=== PATIENT | male | born 1970 ===

== ENCOUNTER → 2020-11-04 11:16 | Outpatient (BNVA) | payer OTHER, SELFPAY | PROVIDERS: PCP Pediatrics; Visit Provider Surgery ==

== ENCOUNTER → 2020-11-14 11:46 | Outpatient (BNVA) | payer OTHER, SELFPAY | PROVIDERS: PCP Pediatrics; Visit Provider Surgery ==

== ENCOUNTER → 2021-04-18 | Day surgery (SDC) | payer OTHER, SELFPAY ==
--- NOTE | 2021-04-15 08:39 | HO.ANESPROP2 ---
HPI - Anesthesia Eval Consult details Narrative: 51yo M for Colonoscopy via Stoma & Rectum Ileosotomy r/t divertic Pt cx'd self x 4 PMFSH Active Problems Active Problems: All Active Problems (Updated 11/14/20 @ 14:43 by Toño Pearson MD) Ileostomy in place (Acute) Past Medical History Medical History Asthma Constipation GERD (gastroesophageal reflux disease) History of diverticulitis Ileostomy in place Surgical History Surgical History H/O resection of large bowel (~2018) Hx of appendectomy Social History Social History Second Hand Smoke Exposure: No Meds Allergies Allergy/AdvReac Type Severity Reaction Status Date / Time Penicillins Allergy Intermediate Rash Verified 12/25/20 13:19 Home Medications Medication Instructions Recorded Confirmed Last Taken Type loperamide 2 mg capsule 1 cap PO DIRECTED 06/04/20 11/22/20 Unknown History Exam Exam Date and Time: April 15, 2021 0839 Assessment and Plan Assessment Anesthesia Assessment: Chart Reviewed
== END ==
PROVIDERS: PCP Pediatrics; Visit Provider Surgery
DX: Z12.11 Encounter for screening for malignant neoplasm of colon (principal); Z53.29 Procedure and treatment not carried out because of patient's decision for other reasons; Z93.2 Ileostomy status

== ENCOUNTER 2023-03-05 09:12 | Emergency (ER) | payer OTHER, SELFPAY ==
--- NOTE | ~2023-03-05 | US_ITS ---
EXAMINATION: US VENOUS ULTRASOUND WITH DOPPLER LOWER EXTREMITY, BILATERAL CLINICAL INFORMATION: Lower extremity edema COMPARISON: None available. TECHNIQUE: Ultrasound of the deep veins is performed from the hip to the calf with compression sonography and color and pulse Doppler assessment. Spectral analysis with color-flow imaging is performed. FINDINGS: The common femoral vein is compressible and exhibits a normal phasic waveform, bilaterally; this suggests that the iliac veins are widely patent above. Within each proximal thigh, the visualized profunda femoris vein is patent. The visualized greater saphenous veins and saphenofemoral junctions are normal. Superficial femoral vein is patent in the proximal, mid and distal aspect of each thigh. Popliteal vein is normal to the level of the trifurcation, bilaterally, and the visualized posterior tibial and peroneal veins are normal. No evidence of Noyola's cyst. US/US venous duplex LE BI IMPRESSION: No evidence of deep vein thrombosis in either lower extremity.
[2023-03-05 09:16] VITALS: BP 154/88; PULSE 79; RESP 20; TEMP 36.8; O2SAT 99; BMI 21.8
--- NOTE | 2023-03-05 09:29 | ECG_ITS ---
Test Reason : WEAKNESS' Blood Pressure : / mmHG Vent. Rate : 073 BPM Atrial Rate : 073 BPM P-R Int : 186 ms QRS Dur : 100 ms QT Int : 416 ms P-R-T Axes : 032 -41 041 degrees QTc Int : 458 ms Normal sinus rhythm Left axis deviation Abnormal ECG When compared with ECG of 11-SEP-2019 12:19, No significant change was found Referred By: Grace Lindsay Electronically Signed By:Sean Jones
--- NOTE | 2023-03-05 09:37 | ED.GENADULT ---
HPI - General Adult General Chief complaint: Skin/Abscess/Foreign Body Stated complaint: B/L Red Swollen Ankles Time Seen by Provider: 03/05/23 09:20 Source: patient Mode of arrival: ambulatory Limitations: no limitations History of Present Illness HPI narrative: 53 yo male with history of diverticulitis s/p ostomy who presents to the ER for evaluation of a worsening red rash and swelling on his bilateral ankles and legs x1.5 weeks. He reports a possible tick bite recently. Patient was seen at 5 days ago and prescribed doxy + bactrim for suspected lyme and cellulitis. Today he noticed pintpoint red weeks to his bilateral LE and redness/ swelling to b/l ankles with itching. Denies weakness, fatigue, chest pain, SOB, N/V, diarrhea, or constipation. Onset (ago): week(s) (2) Location: left, right and lower extremity Radiation: non-radiation Severity: moderate Pain Consistency: constant Relieving factors: none Exacerbating factors: none Associated symptoms: denies other symptoms Treatments prior to arrival: other (abx) Related Data Home Medications Medication Instructions Recorded Confirmed loperamide 2 mg capsule 1 cap PO DIRECTED 06/04/20 11/22/20 Previous Rx's Medication Instructions Recorded doxycycline hyclate 100 mg tablet 100 mg PO BID #20 tabs 12/25/20 omeprazole 20 mg capsule,delayed 20 mg PO DAILY #30 caps 01/22/21 release sulfamethoxazole 800 1 tab PO BID 7 days #14 tabs 03/01/23 mg-trimethoprim 160 mg tablet (Bactrim DS) prednisone 20 mg tablet 60 mg PO DAILY 7 days #21 tabs 03/05/23 Allergies Allergy/AdvReac Type Severity Reaction Status Date / Time Penicillins Allergy Intermediate Rash Verified 03/01/23 15:49 Review of Systems Review of Systems: Yes all other systems are reviewed and are negative PMFSH Past Medical History Attestation statement: The following information was validated with the patient. Source: old records reviewed Medical History Asthma Constipation GERD (gastroesophageal reflux disease) History of diverticulitis Ileostomy in place Surgical History H/O resection of large bowel (~2018) Hx of appendectomy Social History Social History Second Hand Smoke Exposure: No Advance Directives: Yes Advance Directives Information Provided: Yes Advance Directives on File: No Physical Exam ED Vital Signs: Vital Signs - 24 hr 03/05/23 09:16 03/05/23 12:25 Temperature 98.2 F 97.7 F Pulse Rate 79 68 Respiratory Rate 20 16 Blood Pressure 154/88 H 114/74 Pulse Oximetry 99 100 Oxygen Delivery Method Room Air Room Air BMI result Body Mass Index 21.8 Appearance: Alert. Oriented X3. No acute distress. Head: normocephalic, atraumatic. Eyes: Pupils equal, round and reactive to light. ENT: Pharynx normal. No tonsillar swelling or exudate. Neck: Normal inspection. Neck supple. CVS: Normal heart rate and rhythm. Pulses normal. Respiratory: No respiratory distress. Breath sounds normal. Abdomen: Soft and nontender. +BS x4 Skin: Skin warm and dry. Normal skin color. Normal skin turgor. No rashes. Extremities: Edema to bilateral ankles. LE. Vasculitic, non blanching, erythematous rash to right ankle. Petechial rash to bilateral LE up to the thighs. Neuro/psych: Oriented X 3. No motor deficit. No sensory deficit. Medications Administered Discontinued Medications Generic Name Dose Route Start Last Admin Trade Name Freq PRN Reason Stop Dose Admin Prednisone 60 mg 03/05/23 12:01 03/05/23 12:23 Prednisone 20 Mg Tablet PO 03/05/23 12:02 60 mg ONCE ONE Administration Medical Decision Making Medical Decision Making MDM Narrative: 53 yo male with history of diverticulitis s/p ostomy who presents to the ER for evaluation of a worsening red rash and swelling on his bilateral ankles and legs x1.5 weeks. Vital signs stable. Physical exam notable for vasculitic rash to right ankle and petechial rash to b/l lower extremities. Plan: labs, venous duplex b/l LE, tick panel Labs within normal limits, mildly anemic. platelets and coags are normal, as are LFTs. Mildly elevated ESR/ CRP. Normal venous duplex of b/l LE. Tick panel pending. His exam is c/w vasculitis of unclear etiology. No other organ damage found today. Will plan to start of prednisone 60 mg x7 days and have him follow up with his PCP for further management and work up. Case d/w Dr. Ayala. Stable for d/c, all questions were answered. Differential Diagnosis Differential Diagnoses: The differential diagnosis associated with the presentation includes (vasculitis, cellulitis, venous insufficiency, TEN, large vs small vessel cellulitis ) Admission/Observation Consideration of admission/observation: Escalation of care including admission/observation considered (This 53 yo male recently rx doxy and bactrim for possible infection, concern for vasculitic process and possible coagulopathy with multi-system involvement, considered admission.) Lab Data MDM Lab Attestation statement: I reviewed the patient's lab results. (Labs within normal limits, mildly anemic. Mildly elevated ESR/ CRP.) 03/05/23 10:13 03/05/23 10:13 Labs: Lab Results 03/05/23 03/05/23 03/05/23 Range/Units 10:13 10:13 10:13 WBC 3.6 L (4.8-10.8) X10*3/uL RBC 4.57 L (4.60-5.80) X10*6/uL Hgb 11.8 L (14.0-18.0) g/dl Hct 36.5 L (42.0-52.0) % MCV 79.9 L (80.0-98.0) fL MCH 25.8 L (27.0-33.0) pg MCHC 32.3 (31.0-36.0) g/dl RDW 13.2 (11.0-16.0) % Plt Count 203 (160-400) X10*3/uL MPV 10.1 (9.4-12.4) fL Immature Gran % (Auto) 0.3 (0.0-0.4) % Neut % (Auto) 78.9 H (45-73) % Lymph % (Auto) 12.5 L (20-40) % Mccracken % (Auto) 6.9 (2-11) % Eos % (Auto) 1.1 (0-4) % Baso % (Auto) 0.3 (0-2) % Lymph # (Auto) 0.5 L (1.2-4.9) X10*3/uL Mccracken # (Auto) 0.3 (0.1-1.2) X10*3/uL Eos # (Auto) 0.0 (0.0-0.4) X10*3/uL Baso # (Auto) 0.0 (0.0-0.2) X10*3/uL Abs Immat Gran (auto) 0.01 (0.00-0.03) X10*3/uL Absolute Neuts (auto) 2.9 (2.0-8.3) x10*3/uL Absolute Nucleated RBC 0.000 (0.0-0.012) X10*3/uL Nucleated RBC % (auto) 0.0 (0.0-0.2) /100WBC ESR (0-15) MM/HR PT 12.4 (10.0-13.1) SEC INR 1.1 (0.9-1.1) APTT 28.6 (26.0-36.4) SEC Sodium 138 (135-145) mmol/L Potassium 3.8 (3.3-5.1) mmol/L Chloride 103 (96-108) mmol/L Carbon Dioxide 26 (22-29) mmol/L Anion Gap 13 (12-20) BUN 16 (9-16) mg/dL Creatinine 1.24 (0.5-1.4) mg/dL Estim Creat Clear Calc 67.3 Estimated GFR > 60 Random Glucose 114 (60-115) mg/dL Calcium 9.3 (8.4-10.2) mg/dL Magnesium 2.0 (1.6-2.6) mg/dL Total Bilirubin 0.8 (0.0-1.0) mg/dL Direct Bilirubin 0.3 (0.0-0.5) mg/dL AST 22 (5-37) U/L ALT 12 (0-40) U/L Alkaline Phosphatase 62 (39-117) U/L C-Reactive Protein 0.73 H (< or = 0.50) mg/dL B-Natriuretic Peptide (<100) pg/mL Total Protein 6.9 (6.5-8.0) g/dL Albumin 3.7 (3.5-5.0) g/dL 03/05/23 03/05/23 Range/Units 10:13 10:13 WBC (4.8-10.8) X10*3/uL RBC (4.60-5.80) X10*6/uL Hgb (14.0-18.0) g/dl Hct (42.0-52.0) % MCV (80.0-98.0) fL MCH (27.0-33.0) pg MCHC (31.0-36.0) g/dl RDW (11.0-16.0) % Plt Count (160-400) X10*3/uL MPV (9.4-12.4) fL Immature Gran % (Auto) (0.0-0.4) % Neut % (Auto) (45-73) % Lymph % (Auto) (20-40) % Mccracken % (Auto) (2-11) % Eos % (Auto) (0-4) % Baso % (Auto) (0-2) % Lymph # (Auto) (1.2-4.9) X10*3/uL Mccracken # (Auto) (0.1-1.2) X10*3/uL Eos # (Auto) (0.0-0.4) X10*3/uL Baso # (Auto) (0.0-0.2) X10*3/uL Abs Immat Gran (auto) (0.00-0.03) X10*3/uL Absolute Neuts (auto) (2.0-8.3) x10*3/uL Absolute Nucleated RBC (0.0-0.012) X10*3/uL Nucleated RBC % (auto) (0.0-0.2) /100WBC ESR 23 H (0-15) MM/HR PT (10.0-13.1) SEC INR (0.9-1.1) APTT (26.0-36.4) SEC Sodium (135-145) mmol/L Potassium (3.3-5.1) mmol/L Chloride (96-108) mmol/L Carbon Dioxide (22-29) mmol/L Anion Gap (12-20) BUN (9-16) mg/dL Creatinine (0.5-1.4) mg/dL Estim Creat Clear Calc Estimated GFR Random Glucose (60-115) mg/dL Calcium (8.4-10.2) mg/dL Magnesium (1.6-2.6) mg/dL Total Bilirubin (0.0-1.0) mg/dL Direct Bilirubin (0.0-0.5) mg/dL AST (5-37) U/L ALT (0-40) U/L Alkaline Phosphatase (39-117) U/L C-Reactive Protein (< or = 0.50) mg/dL B-Natriuretic Peptide 129 H (<100) pg/mL Total Protein (6.5-8.0) g/dL Albumin (3.5-5.0) g/dL Independent Interpretation I performed an independent interpretation of an: Ultrasound Interpretation: no visible DVT, agree w/ radiology read Radiology Impression Discussion of test interpretation with radiology: I have reviewed the radiologist's reading. Radiologist Impression: US/US venous duplex LE BI IMPRESSION:? No evidence of deep vein thrombosis in either lower extremity. External Record Review External record reviewed: Outpatient record and Prior outpatient labs Prescription Management I considered prescription management with: Other (steroid) Critical Care Time Critical Care Time Critical Care Time: No Discharge Plan Discharge Clinical Impression: Vasculitis Patient Disposition: Home, Self-Care Instructions: Leg Edema (ED) Additional Instructions: Your lab workup was reassuring. The ultrasound of your legs was normal. Your exam and clinical presentation are consistent with vasculitis. The cause is unknown. A steroid for your rash has been sent to your pharmacy. Please take this as prescribed and follow up with your PCP as they may want to taper this medication and take you off of it slowly. Recommend STOPPING bactrim and continuing your doxycycline until we get your tick panel back. IF your tick panel comes back positive we will call you. If you develop new or worsening symptoms call 911 or come back to the ER for further evaluation. Prescriptions: New prednisone 20 mg tablet 60 mg PO DAILY 7 Days Qty: 21 0RF No Action doxycycline hyclate 100 mg tablet 100 mg PO BID Qty: 20 0RF omeprazole 20 mg capsule,delayed release(DR/EC) 20 mg PO DAILY Qty: 30 3RF loperamide 2 mg capsule 1 cap PO DIRECTED sulfamethoxazole-trimethoprim [Bactrim DS] 800-160 mg tablet 1 tab PO BID 7 Days Qty: 14 0RF Referrals: Trace Blanco MD [Primary Care Provider] - 1 week
[2023-03-05 10:21] LABS: MANUAL DIFF FLAG NO
[2023-03-05 10:25] LABS: Basophils Percent Auto 0.3 % (0-2); Eosinophils Percent Auto 1.1 % (0-4); Hematocrit 36.5 % (42.0-52.0); Hemoglobin 11.8 g/dl (14.0-18.0); Imm Gran Abs Auto 0.01 X10*3/uL (0.00-0.03); Imm Gran Pct Auto 0.3 % (0.0-0.4); Lymphocytes Absolute Auto 0.5 X10*3/uL (1.2-4.9); Lymphocytes Percent Auto 12.5 % (20-40); Mean Corpuscular HGB Conc 32.3 g/dl (31.0-36.0); Mean Corpuscular Hemoglobin 25.8 pg (27.0-33.0); Mean Corpuscular Volume 79.9 fL (80.0-98.0); Mean Platelet Volume 10.1 fL (9.4-12.4); Monocytes Absolute Auto 0.3 X10*3/uL (0.1-1.2); Monocytes Percent Auto 6.9 % (2-11); Neutrophils Absolute Auto 2.9 x10*3/uL (2.0-8.3); Neutrophils Percent Auto 78.9 % (45-73); Platelet Count 203 X10*3/uL (160-400); Red Blood Count 4.57 X10*6/uL (4.60-5.80); Red Cell Distribution Width 13.2 % (11.0-16.0); White Blood Count 3.6 X10*3/uL (4.8-10.8)
[2023-03-05 10:29] LABS: INTERNATIONAL NORM RATIO 1.1 (0.9-1.1); Prothrombin Time 12.4 SEC (10.0-13.1)
[2023-03-05 10:32] LABS: Partial Thromboplastin Time 28.6 SEC (26.0-36.4)
[2023-03-05 10:45] LABS: Alanine Aminotransferase 12 U/L (0-40); Albumin Level 3.7 g/dL (3.5-5.0); Alkaline Phosphatase 62 U/L (39-117); Anion Gap 13 (12-20); Aspartate Amino Transferase 22 U/L (5-37); Bilirubin Direct 0.3 mg/dL (0.0-0.5); Bilirubin Total 0.8 mg/dL (0.0-1.0); Blood Urea Nitrogen 16 mg/dL (9-16); C Reactive Protein 0.73 mg/dL (< or = 0.50); Calcium 9.3 mg/dL (8.4-10.2); Carbon Dioxide 26 mmol/L (22-29); Chloride 103 mmol/L (96-108); Creatinine Clr Calc Pharmacy 67.3; Estimated Glomerular Filt Rate > 60; Glucose Random 114 mg/dL (60-115); Potassium 3.8 mmol/L (3.3-5.1); Sodium 138 mmol/L (135-145); Total Protein 6.9 g/dL (6.5-8.0)
[2023-03-05 10:50] LABS: B Type Natriuretic Peptide 129 pg/mL (<100)
[2023-03-05 11:15] LABS: Erythrocyte Sedimentation Rate 23 MM/HR (0-15)
--- NOTE | 2023-03-05 11:16 | PC.NURSE ---
pt in stretcher, ultrasound in room
[2023-03-05] MEDS: predniSONE 20 MG TABLET 60 MG PO (12:23)
[2023-03-05 12:25] VITALS: BP 114/74; PULSE 68; RESP 16; TEMP 36.5; O2SAT 100
[2023-03-08 14:34] LABS: A. Phagocytphilium DNA,RT-PCR NOT DETECTED (NOT DETECTED); Babesia Microti DNA, RT-PCR NOT DETECTED (NOT DETECTED); Borrelia Miyamotoi,DNA RT-PCR NOT DETECTED (NOT DETECTED); E.Chaffeensis DNA RT-PCR NOT DETECTED (NOT DETECTED); Lyme(Borrelia ssp)DNA RT-PCR NOT DETECTED (NOT DETECTED)
[2023-03-08 21:22] LABS: Lyme Abs Screen <0.90 index
[2023-03-10 22:48] LABS: Rocky Mtn. Spot. Fever IgG Ab Not Detected (Not Detected); Rocky Mtn.Spot. Fever IgM Ab Not Detected (Not Detected)
[2023-03-15 09:32] LABS: A. Phagocytophilum Ab IgG <1:64 (<1:64); A. Phagocytophilum Ab IgM <1:20 (<1:20); E. Chaffeensis Ab IgG <1:64 (<1:64); E. Chaffeensis Ab IgM <1:20 (<1:20)
== END 2023-03-05 13:26 | disposition home or self-care (01) ==
PROVIDERS: Physician Assistant; Emergency Provider Emergency Medicine Emergency Medical Services; PCP Pediatrics
DX: I77.6 Arteritis, unspecified (principal); R60.0 Localized edema; D64.9 Anemia, unspecified; R70.0 Elevated erythrocyte sedimentation rate; S80.862D Insect bite (nonvenomous), left lower leg, subsequent encounter; S80.861D Insect bite (nonvenomous), right lower leg, subsequent encounter; W57.XXXD Bitten or stung by nonvenomous insect and other nonvenomous arthropods, subsequent encounter; Z93.2 Ileostomy status; Z79.899 Other long term (current) drug therapy; R23.3 Spontaneous ecchymoses
CPT/HCPCS: 36415; 80048; 80076; 83735; 83880; 85025; 85610; 85652; 85730; 86140; 86617; 86618; 86666; 86757; 87798; 87801; 93005; 93970; 99284

== ENCOUNTER 2023-03-17 09:24 | Outpatient (AMB) | payer OTHER, SELFPAY ==
--- NOTE | 2023-03-17 09:36 | MHC.OFFVIS ---
Intake Vital Signs 03/17/23 09:41 Height 5 ft 11 in Weight 155 lb BMI 21.6 BP 147/70 H Blood Pressure Location Rt brachial Position Sitting Pulse 79 Intake Visit Reasons: discuss colonoscopy Intake Note: This patient presents for an assessment to discuss colonoscopy. Patient denies complaints at this time. [place] Required: No Accompanied by: Self / Same As Patient Allergies Penicillins Allergy (Intermediate, Verified 03/17/23 09:42) Rash Medication List - Last Reconciled 03/17/23 by Toño Pearson MD doxycycline hyclate 100 mg PO BID loperamide 1 cap PO DIRECTED omeprazole 20 mg PO DAILY prednisone 60 mg (3 x 20 mg) PO DAILY 7 days sulfamethoxazole-trimethoprim 800-160 mg (Bactrim DS) 1 tab PO BID 7 days HPI discuss colonoscopy HPI Details 53-year-old male who is well known to me for an ileostomy, here to schedule for his colonoscopy. He had undergone urgent sigmoid resection Dr. Parada in 2018. He however had an anastomotic leak at that time and had required return to the OR. The left colon and sigmoid could not be accessed then in view of severe adhesions and postop inflammatory changes so I placed multiple drains, along with diverting loop ileostomy. He also had enterotomy repairs at that time. He had a barium enema showing no leak in the colon. He had been scheduled for a colonoscopy because of his age but he had canceled this in the past multiple times. He says he feels ready now to proceed with a colonoscopy. He denies any problems with this loop ileostomy. He says he feels well overall. [facility] Medical History Asthma Constipation GERD (gastroesophageal reflux disease) History of diverticulitis Ileostomy in place Surgical History H/O resection of large bowel (~2018) Hx of appendectomy Social History Second Hand Smoke Exposure: No Review of Systems Const Denies chills and Denies fever(s) Card Denies chest pain, Denies dyspnea and Denies dyspnea on exertion Resp Denies cough, Denies dyspnea and Denies dyspnea on exertion GI Denies hematochezia and Denies change in bowel habits Denies hematuria and Denies difficulty urinating Musc Denies back pain and Denies limited range of motion Neuro Denies focal weakness and Denies convulsions Psych Denies depression and Denies mood swings Physical Exam Vital Signs: Last Vital Signs Pulse 79 03/17/23 09:41 BP 147/70 H 03/17/23 09:41 BMI result Body Mass Index 21.6 Const General: comfortable and no acute distress Orientation/consciousness: patient oriented x3 Neck Neck: Yes no lymphadenopathy Resp Auscultation: clear to auscultation bilaterally Cardio Rhythm: regular rhythm GI Other: Loop ileostomy in place on the right side, functioning well, midline incision well healed Palpation (GI): Soft to palpation, nontender and no guarding Neuro General: patient oriented x3 Assessment & Plan Assessment & Plan (1) Ileostomy in place: Comment: 2018 Code(s): Z93.2 - Ileostomy status Plan: He wants to proceed with colonoscopy to evaluate his colon. He is still considering having reversal down the line. Explained to him the technique of colonoscopy both for screening purposes as well as for diagnostic reasons in view of his previous sigmoid resection. Explained the risks including but not limited did to bleeding, infections, perforation, in and risk of anesthesia, as well as the benefits and alternatives. He wants to proceed. He does not require bowel prep in view of his ileostomy. I therefore explained to him that he may have significant residual stool in his colon that may preclude good visualization. Coding Level of Care Code New Pt Level 3 (67947) Diagnoses Ileostomy in place Z93.2
[2023-03-17 09:41] VITALS: BP 147/70; PULSE 79; BMI 21.6
== END 2023-03-17 09:59 | disposition home or self-care (01) ==
PROVIDERS: PCP Pediatrics; Visit Provider Surgery
DX: Z93.2 Ileostomy status (principal)
CPT/HCPCS: 99213

== ENCOUNTER → 2023-03-17 09:24 | Outpatient (BNVA) | payer OTHER, SELFPAY | PROVIDERS: PCP Pediatrics; Visit Provider Surgery ==

== ENCOUNTER 2023-03-28 07:57 | Emergency (ER) | payer OTHER, SELFPAY ==
--- NOTE | 2023-03-28 08:09 | ED_ITS ---
HPI - General Adult General Chief complaint: General Medical Stated complaint: Right leg swollen warm to the tough/Red color Time Seen by Provider: 03/28/23 08:08 Source: patient Mode of arrival: ambulatory Limitations: no limitations History of Present Illness HPI narrative: 53-year-old male history of asthma, constipation, GERD, diverticulitis presenting to the emergency department for evaluation of rash to RLE. Right leg that swollen, red, warm and tender to the touch per patient. Reports that his Left leg also has a small rash but worse on RLE. Worsening over the past few days. Reports that not long ago he had the same thing and it improved with antibiotics and steroids. Has not yet seen a specialist OPC Patient denies fevers, chills, numbness, tingling headache, vision changes, dizziness and we akness. Related Data Home Medications Medication Instructions Recorded Confirmed loperamide 2 mg capsule 1 cap PO DIRECTED 06/04/20 03/17/23 Previous Rx's Medication Instructions Recorded doxycycline hyclate 100 mg tablet 100 mg PO BID #20 tabs 12/25/20 omeprazole 20 mg capsule,delayed 20 mg PO DAILY #30 caps 01/22/21 release sulfamethoxazole 800 1 tab PO BID 7 days #14 tabs 03/01/23 mg-trimethoprim 160 mg tablet (Bactrim DS) prednisone 20 mg tablet 60 mg PO DAILY 7 days #21 tabs 03/05/23 doxycycline hyclate 100 mg capsule 100 mg PO BID 10 days #20 caps 03/28/23 prednisone 20 mg tablet 60 mg PO DAILY 5 days #15 tabs 03/28/23 Allergies Allergy/AdvReac Type Severity Reaction Status Date / Time Penicillins Allergy Intermediate Rash Verified 03/17/23 09:42 Review of Systems Review of Systems: Constitutional : No Weight loss, No Fever, No Chills, No Fatigue, No Malaise ENT/Mouth : No sore throat, No Rhinorrhea Eyes: No Eye Pain, No Swelling, No Redness Cardiovascular : No Chest Pain, No SOB, No Dyspnea on Exertion, No Orthopnea, No Edema, No Palpitations Respiratory : No Cough, No Sputum, No Wheezing Gastrointestinal : No Nausea, No Vomiting, No Diarrhea, No Constipation, No abdominal Pain, No Hematochezia, No Melena Genitourinary : No Dysuria, No Urinary Frequency, No Hematuria, Musculoskeletal : + joint pain, No Myalgias, + Joint Swelling Skin : No Skin Lesions, No rash Neuro : No Weakness, No Numbness, No Dizziness, No Headache Psych : No Anxiety/Panic, No Depression All other systems reviewed and are negative Yes all other systems are reviewed and are negative [facility] Past Medical History Attestation statement: The following information was validated with the patient. Source: old records reviewed and nursing notes reviewed Medical History Asthma Constipation GERD (gastroesophageal reflux disease) History of diverticulitis Ileostomy in place Surgical History H/O resection of large bowel (~2018) Hx of appendectomy Social History Social History Smoked in Last 30 Days: No Second Hand Smoke Exposure: No Use of substances other than those prescribed or required for medical reasons: No Advance Directives: No Advance Directives Information Provided: No Physical Exam ED Vital Signs: Vital Signs - 24 hr 03/28/23 08:10 03/28/23 08:29 Temperature 98.2 F Pulse Rate 76 68 Respiratory Rate 16 15 Blood Pressure 154/83 H 135/82 Pulse Oximetry 99 100 Oxygen Delivery Method Room Air Room Air BMI result Body Mass Index 26.5 vss Appearance: Alert.? Oriented X3.? No acute distress.? Head: Normocephalic, atraumatic, no step-offs or deformities Eyes: Pupils equal, round and reactive to light.? CVS: Normal heart rate and rhythm.? Pulses normal.? Respiratory: No respiratory distress.? Breath sounds normal.? Abdomen: Soft and nontender.? Skin: Skin warm and dry.? Normal skin color.? Normal skin turgor.? + nonblanchable rash to b/l lower extremities 2+ DP,AT, PT pulses equal and b/l w/ normal sensation distally to b/l LE, no foot drop ( image below) Extremities: No lower extremity edema.? No calf ttp, negative concha b/l.. 5/5 strength to bilateral upper and lower extremities Neuro: Oriented X 3.? No motor deficit.? No sensory deficit. CN 2-12 intact Course Reevaluation(s) Reevaluation #1: Chart review reveals that patient was seen here on 03/05/2023 for a similar presentation. Had a negative DVT study on that day no need for repeat study i do not suspect DVT or arterial occlusion. He tells me that last time he had this they gave him antibiotics and steroids and it completely cleared this. Patient has not yet seen his PCP but is scheduled to go see them soon. I explained to him he might require hematology evaluation at some point. Will discharge on prednisone, doxycycline as long as labs are stable. Educated patient on diagnosis and treatment plan, answered all question, patient verbalizes understanding. At this time patient will be discharged home, advised to return with new or worsening symptoms. Educated on worrisome signs and symptoms and when to return. At this time I feel comfortable discharge home. Time: 08:16 Reevaluation #2: CBC with no acute findings, patient noted to have slight leukopenia however has been present in the past, normocytic anemia at baseline noted. Patient's platelets stable. Chemistry unremarkable. Patient's CRP elevated, consistent with vasculitis will have him follow-up with Hematology. Advised him to follow- up with PCP also. Medical Decision Making Medical Decision Making MDM Narrative: 53-year-old male presents with rash to bilateral lower extremities for the past few days worsening. Physical exam significant for nonblanching rash to bilateral lower extremities please refer to image and physical exam portion of chart. This is likely vasculitis vs cellulitis. Unlikely erysipelas, necrotizing infection, threatened limb, arterial occlusion or venous occlusion. Unlikely TEN, SJS. Will rule out thrombocytopenia. Unlikely CHF Plan labs Differential Diagnosis Differential Diagnoses: The differential diagnosis associated with the presentation includes This is likely vasculitis vs cellulitis. Unlikely erysipelas, necrotizing infection, threatened limb, arterial occlusion or venous occlusion. Unlikely TEN, SJS. Will rule out thrombocytopenia. Unlikely CHF Admission/Observation Consideration of admission/observation: Escalation of care including admission/observation considered Unlikely Lab Data [facility] Lab Attestation statement: I reviewed the patient's lab results. 03/28/23 08:21 03/28/23 08:21 Labs: Lab Results 03/28/23 03/28/23 03/28/23 Range/Units 08:21 08:21 08:21 WBC 2.9 L (4.8-10.8) X10*3/uL RBC 4.44 L (4.60-5.80) X10*6/uL Hgb 11.2 L (14.0-18.0) g/dl Hct 35.6 L (42.0-52.0) % MCV 80.2 (80.0-98.0) fL MCH 25.2 L (27.0-33.0) pg MCHC 31.5 (31.0-36.0) g/dl RDW 13.2 (11.0-16.0) % Plt Count 232 (160-400) X10*3/uL MPV 9.7 (9.4-12.4) fL Immature Gran % (Auto) 0.3 (0.0-0.4) % Neut % (Auto) 66.4 (45-73) % Lymph % (Auto) 23.6 (20-40) % [place] % (Auto) 7.3 (2-11) % Eos % (Auto) 2.1 (0-4) % Baso % (Auto) 0.3 (0-2) % Lymph # (Auto) 0.7 L (1.2-4.9) X10*3/uL [place] # (Auto) 0.2 (0.1-1.2) X10*3/uL Eos # (Auto) 0.1 (0.0-0.4) X10*3/uL Baso # (Auto) 0.0 (0.0-0.2) X10*3/uL Abs Immat Gran (auto) 0.01 (0.00-0.03) X10*3/uL Absolute Neuts (auto) 1.9 L (2.0-8.3) x10*3/uL Absolute Nucleated RBC 0.000 (0.0-0.012) X10*3/uL Nucleated RBC % (auto) 0.0 (0.0-0.2) /100WBC ESR 34 H (0-15) MM/HR Sodium 139 (135-145) mmol/L Potassium 3.6 (3.3-5.1) mmol/L Chloride 102 (96-108) mmol/L Carbon Dioxide 28 (22-29) mmol/L Anion Gap 13 (12-20) BUN 15 (9-16) mg/dL Creatinine 1.13 (0.5-1.4) mg/dL Estim Creat Clear Calc 71.4 Estimated GFR > 60 Random Glucose 107 (60-115) mg/dL Calcium 9.4 (8.4-10.2) mg/dL Magnesium 1.9 (1.6-2.6) mg/dL Total Bilirubin 0.8 (0.0-1.0) mg/dL AST 16 (5-37) U/L ALT 11 (0-40) U/L Alkaline Phosphatase 60 (39-117) U/L C-Reactive Protein (< or = 0.50) mg/dL Total Protein 7.3 (6.5-8.0) g/dL Albumin 3.8 (3.5-5.0) g/dL 03/28/23 Range/Units 08:21 WBC (4.8-10.8) X10*3/uL RBC (4.60-5.80) X10*6/uL Hgb (14.0-18.0) g/dl Hct (42.0-52.0) % MCV (80.0-98.0) fL MCH (27.0-33.0) pg MCHC (31.0-36.0) g/dl RDW (11.0-16.0) % Plt Count (160-400) X10*3/uL MPV (9.4-12.4) fL Immature Gran % (Auto) (0.0-0.4) % Neut % (Auto) (45-73) % Lymph % (Auto) (20-40) % [place] % (Auto) (2-11) % Eos % (Auto) (0-4) % Baso % (Auto) (0-2) % Lymph # (Auto) (1.2-4.9) X10*3/uL [place] # (Auto) (0.1-1.2) X10*3/uL Eos # (Auto) (0.0-0.4) X10*3/uL Baso # (Auto) (0.0-0.2) X10*3/uL Abs Immat Gran (auto) (0.00-0.03) X10*3/uL Absolute Neuts (auto) (2.0-8.3) x10*3/uL Absolute Nucleated RBC (0.0-0.012) X10*3/uL Nucleated RBC % (auto) (0.0-0.2) /100WBC ESR (0-15) MM/HR Sodium (135-145) mmol/L Potassium (3.3-5.1) mmol/L Chloride (96-108) mmol/L Carbon Dioxide (22-29) mmol/L Anion Gap (12-20) BUN (9-16) mg/dL Creatinine (0.5-1.4) mg/dL Estim Creat Clear Calc Estimated GFR Random Glucose (60-115) mg/dL Calcium (8.4-10.2) mg/dL Magnesium (1.6-2.6) mg/dL Total Bilirubin (0.0-1.0) mg/dL AST (5-37) U/L ALT (0-40) U/L Alkaline Phosphatase (39-117) U/L C-Reactive Protein 1.13 H (< or = 0.50) mg/dL Total Protein (6.5-8.0) g/dL Albumin (3.5-5.0) g/dL External Record Review External record reviewed: Inpatient record, Office record, Outpatient record, Prior outpatient labs, Prior outpatient radiology, Primary care record and Outside ED record Tests considered The following testing was considered but not selected: Negative Concha sign, no need for DVT low suspicion. Palpable pulses no signs of neurovascular compromise no need for arterial scan. Prescription Management I considered prescription management with: Antibiotic and Other (Prednisone) Core Measures AMI core measures followed: Yes Measure exclusions: not indicated Critical Care Time Critical Care Time Critical Care Time: No Discharge Plan Discharge Clinical Impression: Vasculitis Patient Disposition: Home, Self-Care Additional Instructions: Take your medications as prescribed. If you were prescribed antibiotics today, it is important that you take your medication to their entirety, do not skip any doses, do not finish them early. Follow-up with your primary care provider this week. Return to the emergency department with new or worsening symptoms. Such as fevers, chills, chest pain, shortness of breath, nausea, vomiting, dizziness, headache, vision changes, lethargy In case of emergency call 911 Your exam and clinical presentation are consistent with vasculitis. The cause is unknown. A steroid for your rash has been sent to your pharmacy. Prescriptions: New doxycycline hyclate 100 mg capsule 100 mg PO BID 10 Days Qty: 20 0RF prednisone 20 mg tablet 60 mg PO DAILY 5 Days Qty: 15 0RF No Action doxycycline hyclate 100 mg tablet 100 mg PO BID Qty: 20 0RF omeprazole 20 mg capsule,delayed release(DR/EC) 20 mg PO DAILY Qty: 30 3RF loperamide 2 mg capsule 1 cap PO DIRECTED prednisone 20 mg tablet 60 mg PO DAILY 7 Days Qty: 21 0RF sulfamethoxazole-trimethoprim [Bactrim DS] 800-160 mg tablet 1 tab PO BID 7 Days Qty: 14 0RF Referrals: [facility] [place] Oncology/Hematology [Provider Group] - 1 week Physician,Unknown J [Physician] - 2 days Interventions: ED Discharge Assessment Last Done: 03/28/23 08:57 Discharge Date/Time: 03/28/23 08:57
[2023-03-28 08:10] VITALS: BP 154/83; PULSE 76; RESP 16; TEMP 36.8; O2SAT 99; BMI 26.5
[2023-03-28 08:26] LABS: MANUAL DIFF FLAG NO
[2023-03-28 08:27] LABS: Basophils Percent Auto 0.3 % (0-2); Eosinophils Absolute Auto 0.1 X10*3/uL (0.0-0.4); Eosinophils Percent Auto 2.1 % (0-4); Hematocrit 35.6 % (42.0-52.0); Hemoglobin 11.2 g/dl (14.0-18.0); Imm Gran Abs Auto 0.01 X10*3/uL (0.00-0.03); Imm Gran Pct Auto 0.3 % (0.0-0.4); Lymphocytes Absolute Auto 0.7 X10*3/uL (1.2-4.9); Lymphocytes Percent Auto 23.6 % (20-40); Mean Corpuscular HGB Conc 31.5 g/dl (31.0-36.0); Mean Corpuscular Hemoglobin 25.2 pg (27.0-33.0); Mean Corpuscular Volume 80.2 fL (80.0-98.0); Mean Platelet Volume 9.7 fL (9.4-12.4); Monocytes Absolute Auto 0.2 X10*3/uL (0.1-1.2); Monocytes Percent Auto 7.3 % (2-11); Neutrophils Absolute Auto 1.9 x10*3/uL (2.0-8.3); Neutrophils Percent Auto 66.4 % (45-73); Platelet Count 232 X10*3/uL (160-400); Red Blood Count 4.44 X10*6/uL (4.60-5.80); Red Cell Distribution Width 13.2 % (11.0-16.0); White Blood Count 2.9 X10*3/uL (4.8-10.8)
[2023-03-28 08:29] VITALS: BP 135/82; PULSE 68; RESP 15; O2SAT 100
[2023-03-28 08:41] LABS: C Reactive Protein 1.13 mg/dL (< or = 0.50)
[2023-03-28 08:42] LABS: Alanine Aminotransferase 11 U/L (0-40); Albumin Level 3.8 g/dL (3.5-5.0); Alkaline Phosphatase 60 U/L (39-117); Anion Gap 13 (12-20); Aspartate Amino Transferase 16 U/L (5-37); Bilirubin Total 0.8 mg/dL (0.0-1.0); Blood Urea Nitrogen 15 mg/dL (9-16); Calcium 9.4 mg/dL (8.4-10.2); Carbon Dioxide 28 mmol/L (22-29); Chloride 102 mmol/L (96-108); Creatinine Clr Calc Pharmacy 71.4; Estimated Glomerular Filt Rate > 60; Glucose Random 107 mg/dL (60-115); Magnesium 1.9 mg/dL (1.6-2.6); Potassium 3.6 mmol/L (3.3-5.1); Sodium 139 mmol/L (135-145); Total Protein 7.3 g/dL (6.5-8.0)
[2023-03-28 09:04] LABS: Erythrocyte Sedimentation Rate 34 MM/HR (0-15)
== END 2023-03-28 08:57 | disposition home or self-care (01) ==
PROVIDERS: Physician Assistant; Emergency Provider Emergency Medicine Emergency Medical Services; PCP Pediatrics
DX: I77.6 Arteritis, unspecified (principal); M79.604 Pain in right leg
CPT/HCPCS: 36415; 80053; 83735; 85025; 85652; 86140; 99283